=== PATIENT | male | born 1980 | race Caucasian/White ===

== ENCOUNTER 2016-06-01 19:40 | Emergency (ER) | payer SELFPAY ==
[~2016-06-01] VITALS: Ht 180.3 cm; Wt 88.0 kg
[2016-06-01] MEDS ORDERED: BACITRACIN/POLYMYXIN B 15 GM OINTMENT TP ONE (20:15)
[2016-06-01] MEDS ORDERED: POVIDONE-IODINE 10% 15 ML SOLUTION UD TP ONE (20:15)
[2016-06-01] MEDS ORDERED: LIDOCAINE HCL BUFFERED 1% W/EPI 1:100,000 20 ML VIAL INJ ONE (20:15)
[2016-06-01 21:05] VITALS: BP 121/72
== END 2016-06-01 21:12 | disposition home or self-care (01) ==
LOC: EMS 19:48
DX: S51.812A Laceration without foreign body of left forearm, initial encounter (principal); W45.8XXA Other foreign body or object entering through skin, initial encounter; Y93.89 Activity, other specified; Y92.89 Other specified places as the place of occurrence of the external cause; Y99.8 Other external cause status
CPT/HCPCS: 12004; 99283; J3490